=== PATIENT | female | born 1995 | race Caucasian/White ===

== ENCOUNTER 2017-11-16 13:34 | Emergency (ER) | payer OTHER ==
[~2017-11-16] VITALS: Ht 167.6 cm; Wt 53.6 kg
[2017-11-16 13:46] VITALS: Ht 167.6 cm; Wt 53.6 kg
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
[2017-11-16 15:00] LABS: BASO % 0.3 %; BASO ABS # 0.03 K/uL (0-0.2); COMPLETE YES; EOS % 1.5 %; HEMATOCRIT 36.7 % (37-47); IG% 0.3 %; LYMPH % 31.3 %; LYMPH ABS # 2.85 K/uL (1.2-3.4); MEAN CELL VOLUME 89.5 fL (80-100); MEAN CORPUSCULAR HEMOGLOBIN 31.7 pg (25-34); MEAN CORPUSCULAR HGB CONC 35.4 g/dl (32-36); MEAN PLATELET VOLUME 9.5 fL (7.4-10.4); MONO % 10.3 %; NEUT % 56.3 %; PLATELET COUNT 298 K/uL (130-400); WHITE BLOOD COUNT 9.12 K/uL (4.8-10.8)
[2017-11-16 15:15] VITALS: TEMP 37.1
[2017-11-16 15:19] LABS: ALT/SGPT 15 U/L (12-78); AST/SGOT 10 U/L (15-37); BLOOD UREA NITROGEN 14 mg/dl (7-18); BUN/CREATININE RATIO 16.6 (10-20); CALCIUM 8.4 mg/dl (8.5-10.1); CARBON DIOXIDE 24 mmol/L (21-32); CHLORIDE 108 mmol/L (98-107); CREATININE 0.87 mg/dl (0.60-1.20); GLUCOSE 85 mg/dl (70-99); POTASSIUM 3.8 mmol/L (3.5-5.1); SODIUM 139 mmol/L (136-145)
[2017-11-16] MEDS ORDERED: OLANZAPINE ZYDIS 10 MG ORALLY DIS. TAB PO STA (15:21)
[2017-11-16 15:30] LABS: ALB/GLOB RATIO 1.1 (0.9-2); ALKALINE PHOSPHATASE 88 U/L (45-117); THYROID STIMULATING HORMONE 0.492 uIu/ml (0.300-4.500)
[2017-11-16] MEDS ORDERED: LORAZEPAM 2 MG/ML 1 ML VIAL IM STA (16:22)
[2017-11-16] MEDS ORDERED: OLANZAPINE 10 MG/2.1 ML SDV IM STA (16:22)
[2017-11-16 16:56] LABS: URINE APPEARANCE CLEAR (CLEAR); URINE BILIRUBIN NEG (NEG); URINE COLOR YELLOW; URINE NITRITE NEG (NEG); URINE SPECIFIC GRAVITY 1.026 (1.000-1.030); UROBILINOGEN NEG (NEG)
[2017-11-16 17:00] VITALS: BP 131/68; PULSE 97; O2SAT 100
[2017-11-16 17:05] LABS: MANUAL MICROSCOPIC REQUIRED? NO; REVIEW REQ? NO
[2017-11-16] MEDS ORDERED: CYAN250T PO (17:08)
[2017-11-16] MEDS ORDERED: VITACAP26 PO (17:08)
[2017-11-16] MEDS ORDERED: MULT-506 PO (17:08)
[2017-11-16] MEDS ORDERED: ASCO500T16 PO (17:11)
[2017-11-16 17:16] LABS: BENZODIAZEPINE, URINE NEG (NEG); COCAINE,URINE NEG (NEG); PHENCYCLIDINE, URINE NEG (NEG)
--- NOTE | 2017-11-16 19:55 | DIAGNOSTIC IMAGING REPORT ---
PELVIS ONE VIEW HISTORY: r/o pelvic foreign body COMPARISON: None. FINDINGS: There is no fracture or dislocation. Soft tissues are unremarkable. No radiopaque foreign bodies. Punctate calcifications within the right deep pelvis are consistent with phleboliths. IMPRESSION: No radiopaque foreign bodies identified within the pelvis. Electronically signed by: Tip Stewart M.D. 11/16/2017 7:53 PM Dictated Date/Time: 11/16/2017 7:52 PM
== END 2017-11-16 22:52 ==
LOC: EDBD 13:34 → C.EDC 13:35 → C.EDA 22:52
DX: O99.340 Other mental disorders complicating pregnancy, unspecified trimester (principal); O9A.219 Injury, poisoning and certain other consequences of external causes complicating pregnancy, unspecified trimester; Z3A.00 Weeks of gestation of pregnancy not specified; F31.10 Bipolar disorder, current episode manic without psychotic features, unspecified; S00.81XA Abrasion of other part of head, initial encounter; X58.XXXA Exposure to other specified factors, initial encounter; Z86.59 Personal history of other mental and behavioral disorders; F17.200 Nicotine dependence, unspecified, uncomplicated

== ENCOUNTER 2018-01-07 20:27 | Emergency (ER) | payer OTHER ==
[~2018-01-07] VITALS: Ht 165.1 cm; Wt 48.7 kg
[~2018-01-07 20:27] MED LIST: ASCO500T16 PO; CYAN250T PO; MULT-506 PO
[2018-01-07 20:30] VITALS: TEMP 36.4; Ht 165.1 cm; Wt 48.7 kg
[2018-01-07] MEDS ORDERED: ONDANSETRON INJ 2 MG/ML 2 ML VIAL IV STA (20:48)
[2018-01-07] MEDS ORDERED: SODIUM CHLORIDE 0.9% 1000ML 1,000 ML IV STA (20:48)
[2018-01-07] MEDS ORDERED: SODIUM CHLORIDE 0.9% 1000ML 1,000 ML IV ONE (20:48)
--- NOTE | 2018-01-07 20:59 | EMERGENCY ROOM VISIT NOTE ---
History Report prepared by Joe: J Carlos Nava Under the Supervision of: Dr. Sherwin Ramos M.D. First contact with patient: 20:44 Chief Complaint: NAUSEA Stated Complaint: SICK TO [place] HOLD NOTHING DOWN History of Present Illness The patient is a 22 year old female who presents to the Emergency Room with complaints of intermittent vomiting beginning two days ago. The patient states that she has been off her lithium for the last two days. She notes that she had cut her lithium in half about a week ago to try to not go through it as quickly. She reports that she is . She also complains of nausea, SOB, moderate abdominal pain, and a clear vaginal discharge. She denies any CP and vaginal bleeding. The patient states that her last period was at the end of October 2017, but that she does not typically have normal periods due to her medication. She notes that she has not been before. She reports that she has a history of PTSD, bipolar, and overdosed 5-6 years ago. Source of History: patient Onset: two days ago Position: abdomen Quality: other (vomiting) Timing: other (intermittent) Associated Symptoms: + SOB, + nausea, + abdominal pain (moderate pain) Note: The patient states that she has been off her medication for the past two days and is . She also complains of a clear vaginal discharge. She denies any vaginal bleeding. Review of Systems See HPI for pertinent positives & negatives. A total of 10 systems reviewed and were otherwise negative. Past Medical & Surgical Medical Problems: (1) Bipolar disorder (2) Delusion (3) Overdose (4) PTSD (post-traumatic stress disorder) Old medical records were reviewed. Nurse's notes were reviewed and I agree with. Family History Patient reports no known family medical history. Social History Smoking Status: Current Every Day Smoker Marital Status: in relationship Housing Status: lives with significant other Current/Historical Medications Scheduled Gulf Carbonate (Gulf Carbonate), 300 MG PO QAM Gulf Carbonate (Gulf Carbonate), 600 MG PO HS Multivit/Min/Iron/Fol Ac/Pren ( Vitamin), 1 TAB PO DAILY Prazosin Hcl (Prazosin), 1 MG PO QAM Prazosin Hcl (Prazosin), 2 MG PO HS Scheduled PRN Trazodone Hcl (Trazodone), 50 MG PO HS PRN for Sleep Allergies Coded Allergies: Aloe (Unverified Allergy, Intermediate, HIVES, 01/07/18) Physical Exam Vital Signs Date Time Temp Pulse Resp B/P (MAP) Pulse Ox O2 Delivery O2 Flow Rate FiO2 01/08/18 01:13 82 18 105/74 100 01/07/18 23:45 85 18 106/58 100 Room Air 01/07/18 20:30 36.4 94 20 128/76 100 Room Air Physical Exam General: Non-ill appearing young female in no acute distress. HEENT: Normal cephalic atraumatic. Pupils are equal round and reactive to light. Extraocular movements are intact. Oropharynx is pink with moist mucous membranes. No swelling of the mouth lips or tongue. Neck: Supple with a midline trachea. No meningeal signs or stiffness, no JVD or bruits. No Stridor. Chest: Clear to auscultation bilaterally. No wheezes or rhonchi. No increased work of breathing. Heart: regular rate and rhythm. Abdomen: Soft nontender, nondistended without rebound guarding or rigidity. Extremities: No cyanosis clubbing or edema. No calf tenderness or assymetry Spine/Back. Non tender to palpation. No CVA tenderness Skin: Good turgor without rashes. Neurologic exam: Cranial nerves two through 12 are intact. Motor and sensation are intact and symmetrical throughout. Medical Decision & Procedures ER Provider Diagnostic Interpretation: Radiology results as stated below per my review and interpretation: US OB/ENDOVAG: Intrauterine gestational sac and yolk sac. No pole. This would date the to 5-1/2 weeks. 2.4cm left ovarian lesion may reflect a corpus. Small amount of free pelvic fluid. Radiologist: Mak Cabrera M.D. Laboratory Results 01/07/18 21:41 Red Blood Count 4.54, Mean Corpuscular Volume 89.6, Mean Corpuscular Hemoglobin 30.8, Mean Corpuscular Hemoglobin Concent 34.4, Mean Platelet Volume 9.4, Neutrophils (%) (Auto) 66.4, Lymphocytes (%) (Auto) 24.9, Monocytes (%) (Auto) 7.1, Eosinophils (%) (Auto) 1.0, Basophils (%) (Auto) 0.2, Neutrophils # (Auto) 8.27, Lymphocytes # (Auto) 3.10, Monocytes # (Auto) 0.89, Eosinophils # (Auto) 0.12, Basophils # (Auto) 0.03 01/07/18 21:41 Test 01/07/18 21:20 01/07/18 21:41 Urine Color YELLOW Urine Appearance CLEAR (CLEAR) Urine pH 7.0 (4.5-7.5) Urine Specific [place] 1.018 (1.000-1.030) Urine Protein NEG (NEG) Urine Glucose (UA) NEG (NEG) Urine Ketones NEG (NEG) Urine Occult Blood NEG (NEG) Urine Nitrite NEG (NEG) Urine Bilirubin NEG (NEG) Urine Urobilinogen NEG (NEG) Urine Leukocyte Esterase NEG (NEG) Urine Test NEG (NEG) White Blood Count 12.46 K/uL (4.8-10.8) Red Blood Count 4.54 M/uL (4.2-5.4) Hemoglobin 14.0 g/dL (12.0-16.0) Hematocrit 40.7 % (37-47) Mean Corpuscular Volume 89.6 fL (80-100) Mean Corpuscular Hemoglobin 30.8 pg (25-34) Mean Corpuscular Hemoglobin Concent 34.4 g/dl (32-36) Platelet Count 288 K/uL (130-400) Mean Platelet Volume 9.4 fL (7.4-10.4) Neutrophils (%) (Auto) 66.4 % Lymphocytes (%) (Auto) 24.9 % Monocytes (%) (Auto) 7.1 % Eosinophils (%) (Auto) 1.0 % Basophils (%) (Auto) 0.2 % Neutrophils # (Auto) 8.27 K/uL (1.4-6.5) Lymphocytes # (Auto) 3.10 K/uL (1.2-3.4) Monocytes # (Auto) 0.89 K/uL (0.11-0.59) Eosinophils # (Auto) 0.12 K/uL (0-0.5) Basophils # (Auto) 0.03 K/uL (0-0.2) RDW Standard Deviation 39.9 fL (36.4-46.3) RDW Coefficient of Variation 12.2 % (11.5-14.5) Immature Granulocyte % (Auto) 0.4 % Immature Granulocyte # (Auto) 0.05 K/uL (0.00-0.02) Anion Gap 5.0 mmol/L (3-11) Est Creatinine Clear Calc Drug Dose 118.0 ml/min Estimated GFR () > 150.0 Estimated GFR (Non- 131.8 BUN/Creatinine Ratio 9.5 (10-20) Calcium Level 8.5 mg/dl (8.5-10.1) Total Bilirubin 0.3 mg/dl (0.2-1) Direct Bilirubin < 0.1 mg/dl (0-0.2) Aspartate Amino Transf (AST/SGOT) 11 U/L (15-37) Alanine Aminotransferase (ALT/SGPT) 17 U/L (12-78) Alkaline Phosphatase 68 U/L (45-117) Total Protein 7.1 gm/dl (6.4-8.2) Albumin 3.6 gm/dl (3.4-5.0) Lipase 70 U/L (73-393) Human Chorionic Gonadotropin, Quant 6000 mIU/mL [place] Level < 0.2 mMOL/L (0.6-1.2) Laboratory studies as stated above per my review. Medications Administered Medications (Trade) Dose Ordered Sig/Ramon Route Start Time Stop Time Status Last Admin Dose Admin Sodium Chloride 1,000 ml @ 999 mls/hr Q1H1M STAT IV 01/07/18 20:48 01/07/18 21:48 DC 01/07/18 21:52 999 MLS/HR Sodium Chloride 1,000 ml @ 150 mls/hr Q6H40M ONCE IV 01/07/18 20:48 01/08/18 01:19 DC 01/07/18 20:48 150 MLS/HR Ondansetron HCl (Zofran Inj) 4 mg NOW STAT IV 01/07/18 20:48 01/07/18 20:50 DC 01/07/18 21:53 4 MG Ondansetron HCl (ZOFRAN ODT 4MG Home Pack) 1 homepack ONCE PO 01/08/18 01:00 01/08/18 01:01 DC 01/08/18 00:58 1 HOMEPACK ED Course 2044: Past medical records reviewed. The patient was evaluated in room C4, and a complete history and physical examination were performed. 2047: Zofran Inj 4mg IV, Sodium Chloride 1000 ml @ 999 mls/hr IV 0: I reevaluated and updated the patient. 0007: I spoke to the psych bottle caser Yovanny. He will try to get the patient in with someone from psychiatry. 0100: Ondansetron HCl 1 homepack PO 0105: Upon reevaluation, the patient is stable. I discussed the results and treatment plan with her. She verbalized agreement of the treatment plan. The patient was discharged home. Medical Decision Differential diagnoses include: , ectopic , electrolyte/ metabolic abnormalities, and mental health illness. This patient comes in as described above. She has nausea. She appears well on exam and is not actively vomiting. her abdomen is benign. She's had no significant vaginal discharge. She says she is recently diagnosed . She is on lithium and prazosin for PTSD/bipolar she ran out and gross asking for refill. She's been trying to get in with her psychiatrist, Dr. Vincent. IV access established and her beta hCG was 5000. On ultrasound, there is a gestational sac seen. She has no significant electrolyte or metabolic abnormalities. With IV Zofran and IV fluid she is feeling significantly better. I am concerned about her being on lithium while she is . She needs to discuss this with her psychiatrist and may be better options his lithium is a category D. I had Yovanny, our bottle caser talked to her at and our case management team is going to get her in with her psychiatrist in the next day or so that's so they can make an appropriate choice. She was given Zofran any of his nausea return if: worsening of symptoms, not tolerating fluids, any new problems or concerns. Medication Reconcilliation Current Medication List: was personally reviewed by me Blood Pressure Screening Patient's blood pressure: Normal blood pressure Blood pressure disposition: Did not require urgent referral Consults Time Called: 4 Consulting Physician: Psych Sampling Expert Yovanny Returned Call: [phone] Discussed the patient's case. He will try to get the patient in with someone from psychiatry. Impression Primary Impression: Nausea Additional Impressions: Intrauterine Bipolar disorder Scribe Attestation The scribe's documentation has been prepared under my direction and personally reviewed by me in its entirety. I confirm that the note above accurately reflects all work, treatment, procedures, and medical decision making performed by me. Departure Information Dispostion Home / Self-Care Referrals No Doctor, Assigned (PCP) Forms HOME CARE DOCUMENTATION FORM, IMPORTANT VISIT INFORMATION Patient Instructions My [facility] Additional Instructions Rest. Drink plenty of fluids. May use Zofran 4 mg every 6 hours if needed for nausea Return if: increasing pain, worsening of symptoms, any new problems or concerns. Follow-up with your psychiatrist tomorrow for recheck. You may need to be started on new medications as you are and lithium can cause problems during . You need to talk with her psychiatrist to come up with a game plan Problem Qualifiers
[2018-01-07 21:58] LABS: BASO % 0.2 %; BASO ABS # 0.03 K/uL (0-0.2); EOS ABS # 0.12 K/uL (0-0.5); HEMATOCRIT 40.7 % (37-47); IG# 0.05 K/uL (0.00-0.02); LYMPH % 24.9 %; MEAN CELL VOLUME 89.6 fL (80-100); MEAN CORPUSCULAR HEMOGLOBIN 30.8 pg (25-34); MEAN CORPUSCULAR HGB CONC 34.4 g/dl (32-36); MEAN PLATELET VOLUME 9.4 fL (7.4-10.4); MONO % 7.1 %; MONO ABS # 0.89 K/uL (0.11-0.59); NEUT % 66.4 %; NEUT ABS # 8.27 K/uL (1.4-6.5); PLATELET COUNT 288 K/uL (130-400); RED CELL DISTRIBUTION WIDTH CV 12.2 % (11.5-14.5); RED CELL DISTRIBUTION WIDTH SD 39.9 fL (36.4-46.3); WHITE BLOOD COUNT 12.46 K/uL (4.8-10.8)
[2018-01-07 22:15] LABS: ALBUMIN 3.6 gm/dl (3.4-5.0); ALT/SGPT 17 U/L (12-78); BLOOD UREA NITROGEN 6 mg/dl (7-18); CALCIUM 8.5 mg/dl (8.5-10.1); CARBON DIOXIDE 25 mmol/L (21-32); CREATININE 0.58 mg/dl (0.60-1.20); GLUCOSE 72 mg/dl (70-99); LIPASE 70 U/L (73-393); POTASSIUM 3.7 mmol/L (3.5-5.1); SODIUM 137 mmol/L (136-145)
[2018-01-07 22:18] LABS: ALKALINE PHOSPHATASE 68 U/L (45-117); AST/SGOT 11 U/L (15-37); TOTAL PROTEIN 7.1 gm/dl (6.4-8.2)
[2018-01-07] MEDS ORDERED: TRAZ50TA35 PO (23:33)
[2018-01-07] MEDS ORDERED: PRENTAB26 PO (23:33)
[2018-01-07] MEDS ORDERED: LITH600C PO (23:33)
[2018-01-07] MEDS ORDERED: LITH300T2 PO (23:33)
[2018-01-07] MEDS ORDERED: PRAZ1CAP10 PO (23:34)
[2018-01-07] MEDS ORDERED: PRAZ2CAP3 PO (23:34)
[2018-01-08] MEDS ORDERED: ONDANSETRON HOME PACK 4MG OD TAB PO ONE (01:00)
[2018-01-08 01:13] VITALS: BP 105/74; PULSE 82; O2SAT 100
--- NOTE | 2018-01-08 06:37 | DIAGNOSTIC IMAGING REPORT ---
ECTOPIC ULTRASOUND CLINICAL HISTORY: . Pelvic pain. COMPARISON STUDY: No previous studies for comparison. FINDINGS: Intrauterine gestational sac was visualized the mean sac diameter of 11 weeks. A 3 mm yolk sac was visualized. Embryonic pole was not identified. The right ovary measured 27 x 15 x 36 mm. The left ovary measured 48 x 27 x 31 mm. There is a 2.4 cm corpus luteum cyst. There is trace free pelvic fluid. IMPRESSION: 1. Early intrauterine with an estimated postmenstrual age of 5 weeks and 2 days. An embryonic pole was not visualized. Ultrasound follow-up is therefore recommended to confirm a viable . Electronically signed by: Rush Dunlap M.D. 01/08/2018 6:36 AM Dictated Date/Time: 01/08/2018 6:34 AM
== END 2018-01-08 01:14 | disposition home or self-care (01) ==
LOC: C.EDB 20:28 → C.EDC 01-08 01:14
DX: R11.2 Nausea with vomiting, unspecified (principal); Z33.1 Pregnant state, incidental; F31.9 Bipolar disorder, unspecified; F43.10 Post-traumatic stress disorder, unspecified; F17.200 Nicotine dependence, unspecified, uncomplicated